=== PATIENT | female | born 1965 | race American Indian/Alaskan Native ===

== ENCOUNTER 2019-07-04 15:55 | Emergency (ER) | payer BC ==
--- NOTE | 2019-07-04 16:23 | Event Note ---
ED Screening Note Date of service: 07/04/19 Time: 16:21 ED Screening Note: 54 y o female brought in for etoh detox current etoh abuse, needs medical clearance for a detox center hx of seizures from etoh abuse last drink 1 bottle of roger maxjj kiser This initial assessment/diagnostic orders/clinical plan/treatment(s) is/are subject to change based on patients health status, clinical progression and re- assessment by fellow clinical providers in the ED. Further treatment and workup at subsequent clinical providers discretion. Patient/guardian urged not to elope from the ED as their condition may be serious if not clinically assessed and managed. Initial orders include: labs, ua, main side eval
[2019-07-04 17:00] LABS: Basophils % (Auto) 0.8 % (0.0-1.8); Eosinophils % (Auto) 0.7 % (0.0-4.3); Hematocrit 42.1 % (30.3-42.9); Hemoglobin 14.7 gm/dl (10.1-14.3); Lymphocytes # (Auto) 2.3 K/mm3 (1.2-5.4); Lymphocytes % (Auto) 52.7 % (13.4-35.0); Mean Corpuscular HGB Conc 35 % (30-34); Mean Corpuscular Volume 90 fl (79-97); Monocytes # (Auto) 0.2 K/mm3 (0.0-0.8); Monocytes % (Auto) 4.2 % (0.0-7.3); Platelet Count 316 K/mm3 (140-440); Red Blood Count 4.66 M/mm3 (3.65-5.03)
[2019-07-04 17:00] LABS: Amphetamine Screen,Urine PRESUMPTIVE NEGATIVE; Benzodiazepines Screen,Urine PRESUMPTIVE NEGATIVE; Cannabinoid Screen,Urine PRESUMPTIVE NEGATIVE; Cocaine Screen,Urine PRESUMPTIVE NEGATIVE; Methadone Screen,Urine PRESUMPTIVE NEGATIVE; Opiate Screen,Urine PRESUMPTIVE NEGATIVE
[2019-07-04 17:10] LABS: Bacteria,Urine 1+ /HPF (Negative); Bilirubin,Urine NEG (Negative); Blood,Urine SM (Negative); Color,Urine Straw (Yellow); Protein,Urine <15 mg/dL mg/dL (Negative); Urobilinogen,Urine < 2.0 mg/dL (<2.0)
[2019-07-04 17:11] LABS: BUN/Creatinine Ratio 19; Blood Urea Nitrogen 15 mg/dL (7-17); Hemolysis Index 5
[2019-07-04 17:13] LABS: Alanine Aminotransferase 13 units/L (7-56); Albumin 4.5 g/dL (3.9-5)
[2019-07-04 17:14] LABS: Bilirubin,Direct < 0.2 mg/dL (0-0.2)
[2019-07-04 18:48] VITALS: BP 149/84
[2019-07-04] MEDS ORDERED: LORazepam 2 MG/ML VIAL IV PRN ×2 (18:57)
[2019-07-04] MEDS ORDERED: THIAMINE 100 MG, FOLIC ACID 1 MG, MULTIPLE VITAMIN INJ, ADULT 10 ML in SODIUM CHLORIDE ... IV ONE (18:58)
--- NOTE | 2019-07-04 19:17 | Emergency Department Report ---
HPI - General Chief Complaint: Medical Clearance Time Seen by Provider: 07/04/19 18:34 - HPI HPI: 54-year-old -[place] female presents to the emergency department via EMS from the [facility] for a medical clearance so that she can return there and start alcohol detox/rehabilitation. The patient has a history of alcohol abuse and dependence. The patient moved down to [facility] from [place] at the end of 2015. There patient went through alcohol rehabilitation/detox and then was living in a [facility] houses. These kind of facilities with a "structure" allowed her to stay off of alcohol. However the patient returned to [place] a few weeks ago and suddenly started drinking heavily again, every day. At this point the patient says that she feels isolated, depressed about her drinking, and concerned about her health and future. Therefore she contacted [facility] who says that they can help her pending a medical clearance. The patient says she is starting to feel jittery but does not have any history of withdrawal seizures or delirium tremens. ED Past Medical Hx - Past Medical History Hx Psychiatric Treatment: Yes (depression) Additional medical history: alcoholic - Surgical History Additional Surgical History: rt shoulder. tubal lagation - Social History Smoking Status: Former Smoker Substance Use Type: Alcohol ED Review of Systems ROS: Stated complaint: ETOH/SEIZURES Other details as noted in HPI Comment: All other systems reviewed and negative Constitutional: denies: chills, fever Eyes: denies: eye pain, vision change ENT: denies: ear pain, throat pain Respiratory: denies: cough, shortness of breath Cardiovascular: denies: chest pain, palpitations Gastrointestinal: denies: abdominal pain, vomiting Genitourinary: denies: dysuria, discharge Musculoskeletal: denies: back pain, arthralgia Psychiatric: anxiety, depression. denies: suicidal thoughts Physical Exam - Physical Exam Vital Signs: Vital Signs 07/04/19 07/04/19 15:58 18:45 Temperature 98.4 F 98.5 F Pulse Rate 98 H 72 Respiratory 18 16 Rate Blood Pressure 143/91 149/84 Blood Pressure 149/84 [Right] O2 Sat by Pulse 93 97 Oximetry Physical Exam: GENERAL: The patient is well-developed well-nourished. HEENT: Normocephalic. Atraumatic. Patient has moist mucous membranes. EYES: Extraocular motions are intact. NECK: Supple. Trachea is midline. CHEST/LUNGS: Clear to auscultation. There is no respiratory distress noted. HEART/CARDIOVASCULAR: Regular. There is no tachycardia. There is no murmur. ABDOMEN: Abdomen is soft, nontender. Patient has normal bowel sounds. There is no abdominal distention. SKIN:Skin is warm and dry. . NEURO: The patient is awake, alert, and oriented. The patient is cooperative. The patient has no focal neurologic deficits. Normal speech. MUSCULOSKELETAL: There is no tenderness or deformity. There is no limitation range of motion. There is no evidence of acute injury. ED Course Vital Signs 07/04/19 07/04/19 15:58 18:45 Temperature 98.4 F 98.5 F Pulse Rate 98 H 72 Respiratory 18 16 Rate Blood Pressure 143/91 149/84 Blood Pressure 149/84 [Right] O2 Sat by Pulse 93 97 Oximetry ED Medical Decision Making - Lab Data Result diagrams: 07/04/19 16:32 07/04/19 16:32 - Medical Decision Making This patient presents for a medical clearance so she can go to [facility] for alcohol detoxification/rehabilitation. The patient's blood alcohol level at about 4 PM was at 0.24. The rest of her labs are unremarkable including CBC, metabolic panel, urine drug screen, urinalysis. Vital signs stable throughout her ED course. The patient was placed on alcohol withdrawal p rotocol and given IV fluid resuscitation with a banana bag. I spoke to someone at the [facility] [place] who requested that her labs be sent to them. The patient is given permission to do so and it appears that the patient has been accepted to go to their detox center. Patient is waiting for transport from [facility]. The patient is medically cleared for the detox center. Critical Care Time: No Critical care attestation.: If time is entered above; I have spent that time in minutes in the direct care of this critically ill patient, excluding procedure time. ED Disposition Clinical Impression: Alcohol abuse, History of alcohol dependence, Admitted to substance misuse detoxification center Disposition: DC-01 TO HOME OR SELFCARE Is pt being admited?: No Condition: Stable Instructions: Alcohol Intoxication (ED), Abuse of Alcohol (ED), Alcohol Withdrawal (ED), Medical Clearance for Substance Abuse Treatment (ED) Additional Instructions: Please continue with your efforts for alcohol detoxification and rehabilitation. Please follow up with a primary care physician when you are able to do so. Return to the emergency Department with any concerns or any acute distress. Referrals: PRIMARY CARE, [Primary Care Provider] - 3-5 Days Time of Disposition: 20:46
[2019-07-04] MEDS ORDERED: ONDANSETRON 4 MG/2 ML INJ ONE (19:27)
[2019-07-04] MEDS ORDERED: ONDANSETRON 4 MG/2 ML INJ IV ONE (19:36)
== END 2019-07-04 21:43 | disposition home or self-care (01) ==
LOC: ED 15:55
DX: F10.20 Alcohol dependence, uncomplicated (principal); F32.9 Major depressive disorder, single episode, unspecified; Z78.9 Other specified health status; Z98.51 Tubal ligation status; Z87.891 Personal history of nicotine dependence
CPT/HCPCS: 36415; 80048; 80076; 80307; 81001; 83735; 84100; 85025; 96365; 96366; 96375; 99283; J2060; J2405; J3411; J7030; 80320; G0480